=== PATIENT | female | born 1950 | race Caucasian/White ===

== ENCOUNTER 2020-03-22 13:48 | Outpatient (CLI) | payer MEDICARE, SELFPAY ==
--- NOTE | 2020-03-22 13:57 | XR_ITS ---
WS: [id number] SCREENING DEXA SCAN [employer] CLINICAL INFORMATION: POST MENOPAUSAL COMPARISON: None. FINDINGS: The L1-L4 bone mineral density measures 1.174 g/cm2. This corresponds to a T score score of 0.0 and Z score of 0.4. Left femoral neck bone mineral density measures 0.946 g/cm2. This corresponds to a T score of -0.5 an d Z score of 0.1. Right femoral neck bone mineral density measures 0.920 g/cm2. This corresponds to a T score -0.7of an d Z score of -0.1. Mean femoral neck bone mineral density measures 0.933 g/cm2. This corresponds to a T score of -0.6 an d Z score of 0.0. XR/XR DEXA axial skeleton* [id number] IMPRESSION: Normal bone mineralization. Patient's FRAX calculated 10 year probability for major osteoporotic fracture i s 10.2 % and osteoporotic hip fracture is 1.7%.
--- NOTE | 2020-03-22 14:31 | MM_ITS ---
WS: [id number] BILATERAL SCREENING DIGITAL MAMMOGRAM WITH CAD HISTORY: SCREEN COMPARISON: 07/18/2016 and 03/19/2007 Bilateral CC and MLO views submitted. Computer aided detection analyzed. Breast composition: There are scattered areas of fibroglandular density. No suspicious masses, microc alcifications or architectural distortion. Bilateral scattered asymmetries are stable. MM/[place] [id number] IMPRESSION: BI-RADS: 2-Benign FOLLOW UP: 1 Year Follow-up
== END 2020-03-22 13:49 | disposition home or self-care (01) ==
PROVIDERS: Family Provider Family Medicine; PCP Family Medicine; Visit Provider Family Medicine
DX: Z12.31 Encounter for screening mammogram for malignant neoplasm of breast (principal); Z78.0 Asymptomatic menopausal state
CPT/HCPCS: 77067; 77080

== ENCOUNTER → 2020-12-06 17:44 | Outpatient (BNVA) | payer MEDICARE, SELFPAY | PROVIDERS: Family Provider Family Medicine; PCP Family Medicine; Visit Provider Nurse Practitioner Family | DX: Z20.822 Contact with and (suspected) exposure to COVID-19 (principal) | CPT/HCPCS: 87635 ==

== ENCOUNTER 2020-12-10 08:56 | Outpatient (CLI) | payer MEDICARE, SELFPAY ==
[2020-12-10 09:16] VITALS: BP 177/82; PULSE 73; RESP 16; TEMP 36.2; O2SAT 97; BMI 36.0
[2020-12-10 10:34] VITALS: BP 188/94; PULSE 66; RESP 18; TEMP 37.5; O2SAT 95
[2020-12-10 10:54] VITALS: BP 161/85; PULSE 67; RESP 16; TEMP 37.7; O2SAT 95
--- NOTE | 2020-12-10 11:52 | A.OFFVIS_ITS ---
Patient Information Symptom onset date: 12/05/[address] [facility] COVID test results: Nasal/Oral Coronavirus 2019 PCR Detected H 12/06/20 17:44 12/06/20 outside results available, scanned Criteria/Plan Inclusion/Exclusion Criteria weight >/= 40kg, + direct test </= 10 days ago and symptom onset </= 10 days ago age >/= 65 not requiring hospitalization, not requiring oxygen (if not chronically on oxygen) and no increase oxygen requirement (if chronically on oxygen) Patient education patient/caregiver received/reviewed fact sheet, Emergency Use Authorization/unapproved drug status discussed with patient/caregiver, alternatives to this treatment discussed with patient/caregiver, risks and benefits of medication reviewed with patient/caregiver, patient/caregiver given opportunity for questions, which were answered and patient/caregiver consents to receiving Monoclonal Antibody Treatment Plan for treatment Meets criteria for Monoclonal Antibody infusion Other information sat 95%
[2020-12-10 12:25] VITALS: BP 167/80; PULSE 65; RESP 16; TEMP 37.4; O2SAT 97
[2020-12-10 12:28] VITALS: BP 167/80; PULSE 65; RESP 16; TEMP 37.4; O2SAT 97
== END 2020-12-10 08:57 | disposition home or self-care (01) ==
LOC: OPS 08:57
PROVIDERS: PCP Family Medicine; Referring Provider Nurse Practitioner Family; Visit Provider Family Medicine
DX: U07.1 COVID-19 (principal)
CPT/HCPCS: 96365

== ENCOUNTER 2021-04-13 11:10 | Emergency (ER) | payer MEDICARE, SELFPAY ==
[2021-04-13 11:22] VITALS: BP 175/85; PULSE 58; RESP 18; TEMP 36.9; O2SAT 98; BMI 35.5
--- NOTE | 2021-04-13 11:36 | ED_ITS ---
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 She is awake and alert at this time MD Complaint: head injury and head pain Onset (ago): minute(s) Mechanism of Injury: other (Struck head while standing up) Place: home Loss of Consciousness: no Location of injury: other (Left side crown of the head) Severity: mild Quality: dull and throbbing Radiation: none Other Injuries: none Associated symptoms: Deny amnesia, confusion, nausea, neck pain, numbness, syncope, tingling, vertigo, visual changes, vomiting, weakness or other Review of Systems Const: Denies: fever(s), chills, body aches, change in appetite, fatigue or malaise ENMT: Denies: throat pain, ear or mastoid pain, nasal discharge or nasal congestion Card: Denies: syncope Resp: Denies: dyspnea, productive cough or non-productive cough GI: Denies: nausea or vomiting : Denies: flank pain, difficulty voiding, dysuria, urinary frequency or urinary urgency Musc: Denies: neck pain Skin/Breast: Denies: rash or pruritus Neuro: Denies: vertigo or confusion PFS ED PFSH: Social History Smoking and tobacco status: former smoker Alcohol intake: never Physical Exam Const: COMMON NORMALS: no acute distress GENERAL APPEARANCE: cooperative and comfortable ORIENTATION/CONSCIOUSNESS: Yes awake, Yes oriented to person, Yes oriented to place and Yes oriented to time HENMT: COMMON NORMALS: normocephalic, atraumatic, hearing grossly normal bilaterally and external ears normal HEAD & SCALP: normocephalic and atraumatic EXTERNAL EAR: Yes external ears normal Eye: COMMON NORMALS: Equal, round and reactive pupils present, EOMs intact bilaterally, conjunctivae normal and no scleral icterus CONJUNCTIVA: Yes conjunctivae normal PUPIL: Yes Equal, round and reactive pupils present Neck/C-Spine: COMMON NORMALS: full ROM, no lymphadenopathy, supple and no JVD Lymph: LYMPHATIC: no lymphadenopathy noted and no lymphedema noted Resp: COMMON NORMALS: normal respiratory effort, No retractions, No use of accessory muscles and clear to auscultation bilaterally AUSCULTATION: clear to auscultation bilaterally Cardio: COMMON NORMALS: no JVD, regular rate, regular rhythm and No murmurs present (Cardio) RATE: regular rate RHYTHM: regular rhythm GI: COMMON NORMALS: Soft to palpation and No hepatosplenomegaly present AUSCULTATION: Yes normoactive bowel sounds PALPATION: Yes Soft to palpation, No Tenderness to palpation present (GI), No Guarding due to palpation present (GI) and Yes No hepatosplenomegaly present Extremity: COMMON NORMALS: normal to inspection, capillary refill normal, no clubbing, cyanosis or edema, no calf tenderness and no pedal edema Neuro: SENSORIUM/ORIENTATION: Yes oriented to person, Yes oriented to place and Yes oriented to time Skin: COMMON NORMALS: no rashes or lesions noted GENERAL SKIN EXAM: no rashes or lesions noted Course Vital Signs: Vital signs: Vital Signs Temperature 98.4 F 04/13/21 12:00 Pulse Rate 58 L 04/13/21 11:22 Respiratory Rate 18 04/13/21 12:00 Blood Pressure 175/85 04/13/21 11:22 Pulse Oximetry 98 04/13/21 12:00 MDM - Head Injury MDM Narrative: Medical decision making narrative: Neurologically intact on exam minor head injury I do not think there is anything significant there is no swelling no bruising no laceration at the site of impact would just observe for now can follow-up as needed Discharge Plan Discharge Patient Disposition: Home Clinical Impression: Closed head injury Condition: Stable Prescriptions: No Action lisinopril 10 mg tablet 15 mg PO DAILY RF: 0 pantoprazole 20 mg tablet,delayed release (DR/EC) 20 mg PO DAILY RF: 0 Discharge Orders: Discharge ED (Routine); Ordered 04/13/21 Ordered By: Jhon Santamaria Referrals: Raúl Guy MD [Primary Care Provider] - Discharge Diet: Usual diet Discharge Activity: Increase activity as tolerated Patient Instructions: Opioid Safety Coding Level of Care Code ED Marketing Technology Specialist for Chg Mandy
[2021-04-13 12:00] VITALS: RESP 18; TEMP 36.9; O2SAT 98
== END 2021-04-13 12:20 | disposition home or self-care (01) ==
PROVIDERS: Emergency Provider Family Medicine; PCP Family Medicine
DX: S09.8XXA Other specified injuries of head, initial encounter (principal); Z87.891 Personal history of nicotine dependence
CPT/HCPCS: 99281

== ENCOUNTER 2021-04-25 09:29 | Outpatient (CLI) | payer MEDICARE, SELFPAY ==
[2021-04-25 10:31] LABS: Thyroid Stimulating Hormone 0.87 uIU/mL (0.27-4.20)
[2021-04-25 11:30] LABS: Free T4 Free Thyroxine 1.17 ng/dL (0.82-1.77)
== END 2021-04-25 09:30 | disposition home or self-care (01) ==
PROVIDERS: PCP Family Medicine; Visit Provider Dermatology
DX: L65.9 Nonscarring hair loss, unspecified (principal)
CPT/HCPCS: 36415; 84439; 84443

== ENCOUNTER 2021-07-05 11:32 | Outpatient (CLI) | payer MEDICARE, SELFPAY ==
--- NOTE | 2021-07-05 11:41 | CT_ITS ---
WS: [id number] CT ABDOMEN PELVIS TECHNIQUE: Noncontrast CT of the abdomen and pelvis with coronal and sagittal reformatted images. CLINICAL INFORMATION: ACUTE COLLITIS COMPARISON: CT September 2013 DLP: 1732.[address] scans at [facility] use at least one of these dose optimization techniques: automat ed exposure control; mA and/or kV adjustment per patient size (includes targeted exams where dose is matched to clinical indication); or iterative reconstruction. FINDINGS: Prior postoperative changes cholecystectomy and hysterectomy. Noncontrast liver is normal. Hepatomega ly with enlargement of the right hepatic lobe. Normal spleen. Normal GE junction. Lung bases are well aerated. Normal noncontrast pancreas. Tiny left adrenal adenoma. Normal caliber abdominal aorta. Mild perinephric edema about the right kidney with prominent extrarenal pelvis slightly progressed si nce 2012. No obstructing renal or ureteral calculi. Recommend correlation for urinary tract infractio n and right pyelonephritis. Enhancement cannot be evaluated without contrast. Sigmoid diverticulosis. No evidence of acute diverticulitis. Mild pancolonic constipation. No evidenc e of acute colitis. No evidence of small or large bowel obstruction. Disc space narrowing throughout the lumbar spine. Tiny fat-containing umbilical hernia. CT/CT abdomen pelvis wo con [id number] IMPRESSION: 1. Mild prominence of the right extra renal pelvis with right perinephric booker a. Recommend correlation for right pyelonephritis. Enhancement cannot be evalua guille without contrast. 2. Normal left kidney. No obstructing renal or ureteral calculi. 3. Mild hepatomegaly with enlarged right hepatic lobe. 4. Normal caliber abdominal aorta. 5. Sigmoid diverticulosis. No evidence of acute diverticulitis. Mild colonic c onstipation. No evidence of acute colitis. 6. No other significant findings.
[2021-07-05] MEDS: barium sulfate 450 mL Oral Susp PO (13:17)
== END 2021-07-05 11:33 | disposition home or self-care (01) ==
LOC: RAD 11:34
PROVIDERS: PCP Family Medicine; Visit Provider Physician Assistant
DX: K52.9 Noninfective gastroenteritis and colitis, unspecified (principal); K57.30 Diverticulosis of large intestine without perforation or abscess without bleeding; R16.0 Hepatomegaly, not elsewhere classified
CPT/HCPCS: 74176

== ENCOUNTER 2022-04-12 15:18 | Outpatient (CLI) | payer MEDICARE, SELFPAY ==
--- NOTE | 2022-04-12 15:24 | XR_ITS ---
WS: [id number] SCREENING DEXA SCAN [employer] CLINICAL INFORMATION: POSTMENOPAUSAL COMPARISON: March 22, 2020 FINDINGS: The L1-L4 bone mineral density measures 1.260 g/cm2. This corresponds to a T score score of 0.7 and Z score of 1.2. Left femoral neck bone mineral density measures 0.921 g/cm2. This corresponds to a T score of -0.7 an d Z score of 0.0. Right femoral neck bone mineral density measures 0.888 g/cm2. This corresponds to a T score -1.0of an d Z score of -0.2. Mean femoral neck bone mineral density measures 0.905 g/cm2. This corresponds to a T score of -0.8 an d Z score of -0.1. XR/XR DEXA axial skeleton* [id number] IMPRESSION: Normal bone mineralization lumbar spine. Osteopenia RIGHT femoral neck in the lower end of the range. Normal bone minera lization LEFT femoral neck. Patient's FRAX calculated 10 year probability for major osteoporotic fracture i s 9.7 % and osteoporotic hip fracture is 1.5%.
== END 2022-04-12 15:19 | disposition home or self-care (01) ==
LOC: RAD 15:22
PROVIDERS: PCP Family Medicine; Visit Provider Family Medicine
DX: Z78.0 Asymptomatic menopausal state (principal)
CPT/HCPCS: 77080

== ENCOUNTER 2022-10-16 13:53 | Outpatient (CLI) | payer MEDICARE, SELFPAY ==
--- NOTE | 2022-10-16 14:01 | MM_ITS ---
WS: [id number] BILATERAL 3D TOMOSYNTHESIS DIGITAL SCREENING MAMMOGRAPHY WITH CAD CLINICAL INFORMATION: SCREENING HISTORY: Screening mammogram. No current complaints. COMPARISON: 2020 TECHNIQUE: Bilateral CC and MLO views. FINDINGS: Scattered fibroglandular densities bilaterally. Nodular subareolar breast tissue RIGHT breast is prog ressed compared to previous new focal asymmetric density measuring 6 mm along the posterior nipple li ne. Recommend RIGHT diagnostic mammography and ultrasound for further evaluation. LEFT breast is unchanged. Punctate and lucent centered calcifications RIGHT greater than LEFT breast. MM/[place] [id number] IMPRESSION: BI-RADS: 0-Incomplete: Need additional imaging evaluation FOLLOW UP: Need Additional Imaging Recommend RIGHT diagnostic mammography and ultrasound for further evaluation
== END 2022-10-16 13:54 | disposition home or self-care (01) ==
PROVIDERS: PCP Family Medicine; Visit Provider Family Medicine
DX: Z12.31 Encounter for screening mammogram for malignant neoplasm of breast (principal)
CPT/HCPCS: 77063; 77067

== ENCOUNTER 2022-11-20 10:43 | Outpatient (CLI) | payer MEDICARE, SELFPAY ==
--- NOTE | 2022-11-20 10:51 | MM_ITS ---
WS: [id number] RIGHT 3D TOMOSYNTHESIS DIGITAL MAMMOGRAPHY WITH CAD CLINICAL INFORMATION: ABNORMAL MAMMO COMPARISON: 10/16/22 TECHNIQUE: 3 views of the right breast were obtained. FINDINGS: Scattered fibroglandular densities of the right breast. Again seen is nodular subareolar breast tissu e similar to the prior examination. Stable asymmetric density measuring 6 mm along the posterior nipp le line. Ultrasound described below ULTRASOUND BREAST RIGHT TECHNIQUE: Ultrasound right breast focused area of concern. CLINICAL INFORMATION: ABNORMAL MAMMO FINDINGS: Ultrasound RIGHT breast about the areola. Ductal ectasia about the areola. At the 9:00 position, 2 cm from the nipple, there is a hypoechoic slightly irregular lesion measuring 5.6 x 8.6 x 5.7 mm taller than wide. This is indeterminant and recommend further evaluation with ultrasound-guided biopsy. MM/[place] [id number] IMPRESSION: BI-RADS: 4-Suspicious Finding-Biopsy Should Be Considered FOLLOW UP: US Guided Biopsy Recommended Recommend ultrasound-guided biopsy RIGHT breast lesion
== END 2022-11-20 10:44 | disposition home or self-care (01) ==
PROVIDERS: PCP Family Medicine; Visit Provider Physician Assistant
DX: R92.8 Other abnormal and inconclusive findings on diagnostic imaging of breast (principal)
CPT/HCPCS: 76642; 77061; G0279

== ENCOUNTER 2023-01-01 07:50 | Outpatient (CLI) | payer MEDICARE, SELFPAY ==
--- NOTE | 2023-01-01 | US_ITS ---
WS: [id number] ULTRASOUND-GUIDED RIGHT BREAST BIOPSY HISTORY: BREAST LESION COMPARISON: 11/20/2022 Procedure, risks and complications are explained to the patient. Medications are reviewed. Consent is obtained. The mass in the RIGHT breast is localized with ultrasound. Abnormality localizes to 9:00, 2 cm from t he nipple. Skin is cleansed with ChloraPrep and anesthetized with 1% buffered lidocaine. Small dermat ome is made. Under sterile conditions mass is biopsied with a 14-gauge Achieve needle. Multiple core biopsies are performed. Material placed in formalin and sent to pathology for review. No complication s encountered. Breast tissue marker ([employer] ultrasound enhanced ribbon): Single. Patient left the radiology suite with no complications. Patient is instructed to return to [facility] or [facility] with any concerns. US/[place] [id number] IMPRESSION: 1. Uncomplicated core needle biopsy hypoechoic area anterior RIGHT breast at 9 :00. PATHOLOGY: Fibrocystic with a dilated ducts. No atypia or hyperplasia. No malig jono. RECOMMENDATION: 6 month follow-up. BI-RADS 3. Recommend diagnostic RIGHT mammogram and possible ultrasound follow-up in 6 mon ths.
== END 2023-01-01 07:51 | disposition home or self-care (01) ==
LOC: RAD 07:51
PROVIDERS: PCP Family Medicine; Visit Provider Family Medicine
DX: N63.15 Unspecified lump in the right breast, overlapping quadrants (principal)
CPT/HCPCS: 19083; 88305

== ENCOUNTER 2023-08-20 08:52 | Outpatient (CLI) | payer MEDICARE, SELFPAY ==
--- NOTE | 2023-08-20 09:00 | MM_ITS ---
WS: [id number] DIAGNOSTIC RIGHT DIGITAL TOMOSYNTHESIS MAMMOGRAPHY WITH CAD. RIGHT breast ultrasound, limited HISTORY: 6MFU POST BX COMPARISON: 11/20/2022, 01/01/2023, 10/16/2022 Technique: CC, MLO and ML views. RIGHT CC spot. Breast composition: There are scattered areas of fibroglandular density. Biopsy clip 9:00 RIGHT breas t. Similar appearance of the soft tissue and fibroglandular pattern since the prior study. No distort ion. RIGHT breast ultrasound, limited. Hypoechoic nodule at 9:00, 2 cm the nipple measures 4 x 8 x 10 mm. Very similar in size to the prior examination. There is a biopsy clip present. No enlargement. No mammographic changes. Prior biopsy wa s negative. IMPRESSION: MM/[place] [id number] BI-RADS: 2-Benign FOLLOW UP: See Report Return to annual mammographic screening. Screening mammogram November 2022.
== END 2023-08-20 08:53 | disposition home or self-care (01) ==
PROVIDERS: PCP Family Medicine; Visit Provider Family Medicine
DX: R92.8 Other abnormal and inconclusive findings on diagnostic imaging of breast (principal)
CPT/HCPCS: 76642; 77061; G0279

== ENCOUNTER → 2023-12-17 15:06 | Outpatient (BNVA) | payer MEDICARE, SELFPAY | PROVIDERS: PCP Family Medicine; Visit Provider Dermatology | DX: L82.1 Other seborrheic keratosis (principal); L21.8 Other seborrheic dermatitis; Q82.5 Congenital non-neoplastic nevus; L60.8 Other nail disorders; D22.39 Melanocytic nevi of other parts of face | CPT/HCPCS: 99214 ==

== ENCOUNTER 2024-01-12 11:17 | Emergency (ER) | payer MEDICARE, SELFPAY ==
[2024-01-12] VITALS (10 sets, daily range): BP systolic 144–185; BP diastolic 66–98; PULSE 58–103; RESP 17; TEMP 36.6; O2SAT 95–100; BMI 37.8
--- NOTE | 2024-01-12 12:53 | XRR_ITS ---
PROCEDURE INFORMATION: Exam: XR Chest Exam date and time: 01/12/2024 1:06 PM Age: 73 years old Clinical indication: Pain; Chest pressure; Additional info: Chest pain TECHNIQUE: Imaging protocol: Radiologic exam of the chest. Views: 1 view. COMPARISON: CR XR chest 2V* [id number] 11/25/2018 4:26 PM FINDINGS: Lungs: Unremarkable. No consolidation. Pleural spaces: Unremarkable. No pleural effusion. No pneumothorax. Heart/Mediastinum: Unremarkable. No cardiomegaly. Bones/joints: Mild degenerative disease of the left acromioclavicular joint. XR/XR chest 1V portable [id number] IMPRESSION: No acute cardiopulmonary process.
--- NOTE | 2024-01-12 12:54 | ED_ITS ---
HPI - Chest Pain 2 General: Chief Complaint: Chest Pain Stated Complaint: aicha bazzi, chest pain Time Seen by Provider: 01/12/24 12:51 Source: patient Mode of arrival: ambulatory History of Present Illness: 73-year-old female presents emergency ro om complaining of chest pain in the left side of her chest that shoots down her breast and into her arm little bit it is worse when she takes a deep breath. She denies any fever sweats chills or productive cough. She also knows her blood pressure is up a little bit after she arrived here. She has no known history of coronary artery disease. MD complaint: chest pain Onset (ago): day(s) Associated symptoms: Deny abdominal pain, dyspnea or fever(s) Review of Systems 2 Const: Denies: fever(s) or chills Card: Denies: chest pain Resp: Denies: dyspnea GI: Denies: abdominal pain : Denies: dysuria, urinary frequency or urinary urgency Musc: Denies: neck pain or back pain Skin/Breast: Denies: rash PFSH ED 2 PFSH: Medical History GERD (gastroesophageal reflux disease) HTN (hypertension) Surgical History History of cholecystectomy H/O: hysterectomy Social History Smoking and tobacco/nicotine status: former use of tobacco/nicotine Alcohol intake: never Substance/Drug Use: never Physical Exam 2 Const: COMMON NORMALS: no acute distress GENERAL APPEARANCE: cooperative and comfortable ORIENTATION/CONSCIOUSNESS: Yes awake, Yes oriented to person, Yes oriented to place and Yes oriented to time HENMT: COMMON NORMALS: normocephalic, atraumatic and hearing grossly normal bilaterally HEAD & SCALP: normocephalic and atraumatic Resp: COMMON NORMALS: normal respiratory effort, No retractions, No use of accessory muscles and clear to auscultation bilaterally AUSCULTATION: clear to auscultation bilaterally Cardio: COMMON NORMALS: regular rate, regular rhythm and No murmurs present (Cardio) RATE: regular rate RHYTHM: regular rhythm GI: COMMON NORMALS: Soft to palpation and No hepatosplenomegaly present A USCULTATION: Yes normoactive bowel sounds PALPATION: Yes Soft to palpation, No Tenderness to palpation present (GI), No Guarding due to palpation present (GI) and Yes No hepatosplenomegaly present Extremity: COMMON NORMALS: normal to inspection, capillary refill normal, no clubbing, cyanosis or edema, no calf tenderness and no pedal edema Neuro: SENSORIUM/ORIENTATION: Yes oriented to person, Yes oriented to place and Yes oriented to time Skin: COMMON NORMALS: no rashes or lesions noted GENERAL SKIN EXAM: no rashes or lesions noted Course 2 Vital Signs: Vital signs: Vital Signs Temperature 97.9 F 01/12/24 11:26 Pulse Rate 66 01/12/24 17:48 Respiratory Rate 17 01/12/24 11:26 Blood Pressure 166/86 01/12/24 17:01 Pulse Oximetry 97 01/12/24 17:48 Oxygen Delivery Me thod Room Air 01/12/24 17:01 MDM - Chest Pain Medical Decision Making Labs and imaging reviewed is on the chart EKG does not show any acute ST changes. Discharge home. Will set up outpatient Lexiscan sestamibi stress test return if has further chest discomfort. Recommend baby aspirin daily Medical Records I reviewed the patient's medical records. Lab Data I reviewed the patient's lab results. 01/12/24 13:39 01/12/24 13:39 Radiology Impressions Chest X-Ray 01/12/24 12:53 IMPRESSION: No acute cardiopulmonary process. Laboratory Results WBC 4.93 10^3/uL (3.29-11.43) 01/12/24 13:39 RBC 5.20 10^6/uL (3.85-5.65) 01/12/24 13:39 Hgb 14.70 g/dL (11.27-16.99) 01/12/24 13:39 Hct 48.5 % (36-47) H 01/12/24 13:39 MCV 93.3 fl (85-98) 01/12/24 13:39 MCH 28.3 pg (27-33) 01/12/24 13:39 MCHC 30.3 g/dL (30-55) 01/12/24 13:39 RDW 13.2 % (12.1-15.1) 01/12/24 13:39 Plt Count 121 10^3/cmm (157-399) L 01/12/24 13:39 MPV 10.4 fL (7.4-10.4) 01/12/24 13:39 Neut % (Auto) 43.4 % 01/12/24 13:39 Lymph % (Auto) 46.5 % 01/12/24 13:39 Wake % (Auto) 7.5 % 01/12/24 13:39 Eos % (Auto) 1.4 % 01/12/24 13:39 Baso % (Auto) 1.0 % 01/12/24 13:39 Neut # (Auto) 2.14 10^3/uL (1.8-7.7) 01/12/24 13:39 Lymph # (Auto) 2.3 10^3/uL (0.8-4.8) 01/12/24 13:39 Wake # (Auto) 0.4 10^3/uL (0.2-0.9) 01/12/24 13:39 Eos # (Auto) 0.1 10^3/uL (0.0-0.8) 01/12/24 13:39 Baso # (Auto) 0.1 10^3/uL (0.0-0.1) 01/12/24 13:39 Nucleated RBC % (auto) 0 % 01/12/24 13:39 Nucleated RBCs # 0.0 /100WBC 01/12/24 13:39 Sodium 138 mmol/L (136-145) 01/12/24 13:39 Potassium 4.6 mmol/L (3.5-5.1) 01/12/24 13:39 Chloride 104 mmol/L (98-107) 01/12/24 13:39 Carbon Dioxide 19 mmol/L (22-29) L 01/12/24 13:39 Anion Gap 19.6 (5-19) H 01/12/24 13:39 BUN 11 mg/dL (8-23) 01/12/24 13:39 Creatinine 0.7 mg/dL (0.5-0.9) 01/12/24 13:39 GFR Calculation Not Reportable 01/12/24 13:39 Glucose 95 mg/dL (65-115) 01/12/24 13:39 Calculated Osmolality 285 mOsm/kg (285-295) 01/12/24 13:39 Calcium 9.1 mg/dL (8.5-10.5) 01/12/24 13:39 Total Bilirubin 0.5 mg/dL (0.15-1.2) 01/12/24 13:39 AST 53 U/L (0-32) H 01/12/24 13:39 ALT 52 U/L (0-33) H 01/12/24 13:39 Alkaline Phosphatase 94 U/L (35-105) 01/12/24 13:39 Troponin T Baseline < 6 ng/L (0-10) 01/12/24 13:39 Troponin T 120 Minute 6.00 ng/L (0-10) 01/12/24 16:31 Delta Troponin T 0.85649 ABS# (0-10) 01/12/24 16:31 Total Protein 7.1 g/dL (6.6-8.7) 01/12/24 13:39 Albumin 4.0 g/dL (3.5-5.2) 01/12/24 13:39 Globulin 3.1 g/dL (1.3-4.6) 01/12/24 13:39 Urine Color Straw (Yellow) 01/12/24 14:24 Urine Appearance Clear (CLEAR) 01/12/24 14:24 Urine pH 6 (5-7) 01/12/24 14:24 Ur Specific [place] 1.005 (1.005-1.030) 01/12/24 14:24 Urine Protein Neg (Negative) 01/12/24 14:24 Urine Glucose (UA) Norm (Normal) 01/12/24 14:24 Urine Ketones Negative (Negative) 01/12/24 14:24 Urine Blood Neg (Negative) 01/12/24 14:24 Urine Nitrate Negative (Negative) 01/12/24 14:24 Urine Bilirubin Neg (Negative) 01/12/24 14:24 Urine Urobilinogen Norm mg/dL (Negative) 01/12/24 14:24 Ur Leukocyte Esterase Negative (Negative) 01/12/24 14:24 All radiology interpretation(s) finalized by discharge Discharge Plan Discharge Patient Disposition: Home Clinical Impression: Atypical chest pain Condition: Stable Prescriptions: New diclofenac sodium 75 mg tablet,delayed release (DR/EC) 75 mg PO Q12H PRN (Reason: pain) Qty: 20 0RF Discontinued pantoprazole 20 mg tablet,delayed release (DR/EC) 20 mg PO QAM ibuprofen 200 mg Tablet 400 mg PO Q4H PRN (Reason: Pain) No Action multivitamin [Daily Multi-Vitamin] Tablet 1 tab PO DAILY ketoconazole 2 % shampoo See Rx Instructions .ROUTE .COMPLEX Rx Instructions: LATHER ONTO SCALP 2-3 TIMES WEEKLY. ALLOW TO SIT 5 MINUTES BEFORE RINSING. Zyrtec 10 mg Tablet 10 mg PO BEDTIME fexofenadine 180 mg Tablet 180 mg PO QAM Tylenol Ex Str Rapid Release 500 mg Tablet 1,000 mg PO Q4H PRN (Reason: Pain) lisinopril 5 mg tablet 5 mg PO BEDTIME mometasone 0.1 % solution 1 applic topical DAILY PRN (Reason: unknown) Rx Instructions: few drops to scalp daily Discharge Orders: Discharge ED (Routine); Ordered 01/12/24 Ordered By: Jhon Santamaria Referrals: Raúl Guy MD [Primary Care Provider] - Discharge Diet: Usual diet Discharge Activity: Resume usual activity Patient Instructions: Opioid Safety, Pain Management Activity Restrictions/Additional Instructions: Thank you for choosing [facility] for your healthcare needs today. Please realize this is an emergency room and that we are providing you with a medical screening exam and this may not be complete and all inclusive of all the testing and or work up that you may need to determine your ailment or severity of your illness. It is very important that you follow up as instructed or that you return to the Emergency Department should you have concerns or if your condition changes or worsens in any way. You are seen today for complaints of chest discomfort. Your cardiac enzymes laboratory studies were all normal. Also mentions some discomfort with your urination and urine testing was also negative. Would recommend you increase your pantoprazole to 40 mg daily. Since should also complained of some worsening of the discomfort with very deep breathing heavy use diclofenac as needed. Your blood pressure was also little elevated today in the emergency room you should follow-up with your primary care doctor to reevaluate that as an outpatient. Coding Level of Care Code ED Repair Table Operator for Nathaly Galvan
[2024-01-12] MEDS: aspirin 81 mg Chew Tablet 324 MG PO (13:01)
[2024-01-12 13:47] LABS: Basophils # 0.1 10^3/uL (0.0-0.1); Eosinophils # 0.1 10^3/uL (0.0-0.8); Eosinophils % 1.4 %; Hematocrit 48.5 % (36-47); Lymphocytes # 2.3 10^3/uL (0.8-4.8); Lymphocytes % 46.5 %; Mean Corpuscular HGB Conc 30.3 g/dL (30-55); Mean Corpuscular Hemoglobin 28.3 pg (27-33); Mean Corpuscular Volume 93.3 fl (85-98); Mean Platelet Volume 10.4 fL (7.4-10.4); Monocytes # 0.4 10^3/uL (0.2-0.9); Monocytes % 7.5 %; Neutrophils # 2.14 10^3/uL (1.8-7.7); Neutrophils % 43.4 %; Nucleated Red Blood Cells % 0 %; Platelet Count 121 10^3/cmm (157-399); Red Cell Distribution Width 13.2 % (12.1-15.1); White Blood Count 4.93 10^3/uL (3.29-11.43)
[2024-01-12 14:17] LABS: Troponin(5th) Baseline < 6 ng/L (0-10)
[2024-01-12 14:19] LABS: Alkaline Phosphatase 94 U/L (35-105); Blood Urea Nitrogen 11 mg/dL (8-23); Calcium 9.1 mg/dL (8.5-10.5); Carbon Dioxide 19 mmol/L (22-29); Chloride 104 mmol/L (98-107); Creatinine Clr Calc Pharmacy 77.1558; Globulin 3.1 g/dL (1.3-4.6); Glucose 95 mg/dL (65-115); Osmolality Calculated 285 mOsm/kg (285-295); Sodium 138 mmol/L (136-145); Total Bilirubin 0.5 mg/dL (0.15-1.2); Total Protein 7.1 g/dL (6.6-8.7)
[2024-01-12 14:23] LABS: Alanine Aminotransferase 52 U/L (0-33); Anion Gap 19.6 (5-19); Aspartate Amino Transferase 53 U/L (0-32); Potassium 4.6 mmol/L (3.5-5.1)
[2024-01-12 14:47] LABS: Add Urine Microscopic? NO; Charge for UA Resulting for Rev
[2024-01-12 14:53] LABS: Bilirubin Urine Neg (Negative); Blood Urine Neg (Negative); Glucose Urine UA Norm (Normal); Ketones Urine Negative (Negative); Leukocyte Esterase Urine Negative (Negative); Nitrate Urine Negative (Negative); Protein Urine Neg (Negative); Specific Gravity, Urine 1.005 (1.005-1.030); Urine Appearance Clear (CLEAR); Urine Color Straw (Yellow); Urobilinogen Urine Norm (Negative); pH Urine 6 (5-7)
--- NOTE | 2024-01-12 14:53 | ECG_ITS ---
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 Measurements Intervals [place] Rate: 65 P: 66 SD: 162 QRS: 54 QRSD: 96 T: 54 QT: 402 QTc: 419 Interpretive Statements SINUS RHYTHM LOW QRS VOLTAGE IN PRECORDIAL LEADS [QRS DEFLECTION < 1.0 mV IN CHEST LEADS] Compared to ECG 09/04/2018 12:35:02 Myocardial infarct finding no longer present T-wave abnormality no longer present Possible ischemia no longer present Electronically Signed On 01-14-2024 9:39:41 COP by Pablo Contreras M.D. [id number]
[2024-01-12] MEDS: hyDRALAzine 20 mg/mL INJ 1 mL 10 MG IVP (14:59)
[2024-01-12] MEDS: amlodipine 5 mg Tablet PO (15:00)
[2024-01-12 16:54] LABS: Troponin 5 2HR Delta 0.00001 ABS# (0-10)
--- NOTE | 2024-01-16 08:07 | DCPLANNER ---
Sent out patient order to centralized scheduling - [facility]
== END 2024-01-12 17:50 | disposition home or self-care (01) ==
PROVIDERS: Emergency Provider Family Medicine; PCP Family Medicine
DX: R07.89 Other chest pain (principal); I10 Essential (primary) hypertension; Z87.891 Personal history of nicotine dependence
CPT/HCPCS: 36415; 71045; 80053; 81003; 84484; 85025; 93005; 96374; 99285; J0360

== ENCOUNTER 2024-06-17 15:39 | Outpatient (RCR) | payer MEDICARE, SELFPAY | END 2024-07-12 23:59 | disposition home or self-care (01) | LOC: SPT 15:39 | PROVIDERS: PCP Family Medicine; Visit Provider Family Medicine | DX: N81.10 Cystocele, unspecified (principal) | CPT/HCPCS: 97110; 97161; 97530 ==

== ENCOUNTER 2024-07-17 13:40 | Outpatient (RCR) | payer MEDICARE, SELFPAY | END 2024-08-11 23:59 | disposition home or self-care (01) | LOC: SPT 13:40 | PROVIDERS: PCP Family Medicine; Visit Provider Family Medicine | DX: N81.10 Cystocele, unspecified (principal); K59.00 Constipation, unspecified; N39.46 Mixed incontinence | CPT/HCPCS: 97110; 97530 ==

== ENCOUNTER 2024-08-19 12:48 | Outpatient (RCR) | payer MEDICARE, SELFPAY | END 2024-08-19 23:59 | disposition home or self-care (01) | LOC: SPT 12:48 | PROVIDERS: PCP Family Medicine; Visit Provider Family Medicine | DX: N81.10 Cystocele, unspecified (principal); K59.00 Constipation, unspecified; N39.46 Mixed incontinence | CPT/HCPCS: 97110 ==

== ENCOUNTER 2024-08-22 14:45 | Outpatient (CLI) | payer MEDICARE, SELFPAY ==
--- NOTE | 2024-08-22 14:49 | MM_ITS ---
WS: [id number] BILATERAL 3D TOMOSYNTHESIS DIGITAL SCREENING MAMMOGRAPHY WITH CAD CLINICAL INFORMATION: SCREENING HISTORY: Screening mammogram. No current complaints. COMPARISON: 2022 TECHNIQUE: Bilateral CC and MLO views. FINDINGS: Scattered fibroglandular densities bilaterally. No suspicious focal mass, asymmetry, calcifications, or architectural distortion. No evidence of malignancy. Secretory calcifications RIGHT breast. Biopsy marker RIGHT breast. MM/MM scr tomosynthesis [id number] IMPRESSION: DENSITY: There are scattered areas of fibroglandular density. BI-RADS: 2 - Benign. FOLLOW UP: 1 Year Follow-up Recommend return to annual screening mammography.
== END 2024-08-22 14:46 | disposition home or self-care (01) ==
LOC: RAD 14:45
PROVIDERS: PCP Family Medicine; Visit Provider Family Medicine
DX: Z12.31 Encounter for screening mammogram for malignant neoplasm of breast (principal); R92.323 Mammographic fibroglandular density, bilateral breasts; R92.1 Mammographic calcification found on diagnostic imaging of breast
CPT/HCPCS: 77063; 77067

== ENCOUNTER → 2024-12-22 12:46 | Outpatient (BNVA) | payer MEDICARE, SELFPAY | PROVIDERS: PCP Family Medicine; Visit Provider Nurse Practitioner Family | DX: L21.8 Other seborrheic dermatitis (principal); L82.1 Other seborrheic keratosis; D22.39 Melanocytic nevi of other parts of face; L64.8 Other androgenic alopecia; L85.3 Xerosis cutis; L81.3 Cafe au lait spots | CPT/HCPCS: 99214 ==

== ENCOUNTER → 2025-01-07 13:06 | Outpatient (BNVA) | payer MEDICARE, SELFPAY | PROVIDERS: PCP Family Medicine; Visit Provider Nurse Practitioner Family | DX: L85.3 Xerosis cutis (principal); L81.3 Cafe au lait spots; D48.5 Neoplasm of uncertain behavior of skin | CPT/HCPCS: 11102; 99213 ==

== ENCOUNTER 2025-02-26 20:16 | Emergency (ER) | payer MEDICARE, SELFPAY ==
[2025-02-26 20:17] VITALS: BP 154/85; PULSE 76; RESP 18; TEMP 36.3; O2SAT 98; BMI 33.3
[2025-02-26 21:27] LABS: Basophils # 0.1 10^3/uL (0.0-0.1); Basophils % 0.7 %; Eosinophils # 0.1 10^3/uL (0.0-0.8); Eosinophils % 1.2 %; Hematocrit 48.5 % (36-47); Lymphocytes # 2.9 10^3/uL (0.8-4.8); Lymphocytes % 39.9 %; Mean Corpuscular HGB Conc 32.8 g/dL (30-55); Mean Corpuscular Hemoglobin 27.8 pg (27-33); Mean Corpuscular Volume 84.8 fl (85-98); Mean Platelet Volume 8.9 fL (7.4-10.4); Monocytes # 0.4 10^3/uL (0.2-0.9); Neutrophils # 3.79 10^3/uL (1.8-7.7); Neutrophils % 51.9 %; Nucleated Red Blood Cells % 0 %; Platelet Count 249 10^3/cmm (157-399); Red Blood Count 5.72 10^6/uL (3.85-5.65); Red Cell Distribution Width 13.1 % (12.1-15.1)
[2025-02-26 21:43] LABS: Alanine Aminotransferase 27 U/L (0-33); Albumin Level 4.5 g/dL (3.5-5.2); Alkaline Phosphatase 95 U/L (35-105); Anion Gap 17.5 (5-19); Aspartate Amino Transferase 26 U/L (0-32); Blood Urea Nitrogen 11 mg/dL (8-23); Calcium 9.5 mg/dL (8.5-10.5); Carbon Dioxide 22 mmol/L (22-29); Chloride 101 mmol/L (98-107); Creatinine Clr Calc Pharmacy 68.6516; Globulin 3.2 g/dL (1.3-4.6); Glucose 98 mg/dL (65-115); Osmolality Calculated 283 mOsm/kg (285-295); Potassium 3.5 mmol/L (3.5-5.1); Sodium 137 mmol/L (136-145); Total Bilirubin 0.5 mg/dL (0.15-1.2); Total Protein 7.7 g/dL (6.6-8.7)
[2025-02-26 21:45] LABS: INR 0.89 (0.8-1.2); Partial Thromboplastin Time 26.9 SECONDS (23.9-36.7)
[2025-02-26 22:47] VITALS: BP 184/72; BP 187/77; BP 214/84; PULSE 61; PULSE 66; PULSE 81
[2025-02-26 22:51] VITALS: BP 184/72; PULSE 65; RESP 16; O2SAT 96
--- NOTE | 2025-02-26 22:55 | CTR_ITS ---
PROCEDURE INFORMATION: Exam: CTA Abdomen and Pelvis With Contrast Exam date and time: 02/26/2025 11:48 PM Age: 74 years old Clinical indication: Other: Rapid gi bleed post colonoscopy; Prior surgery; Surgery date: Post-operative (0-2 days) TECHNIQUE: Imaging protocol: C. Computed tomographic angiography of the abdomen and pelvis with contrast. Exam focused on the arteries. 3D rendering (Not supervised by radiologist): MIP and/or 3D reconstructed images were created by the technologist. Radiation optimization: All CT scans at this facility use at least one of these dose optimization techniques: automated exposure control; mA and/or kV adjustment per patient size (includes targeted exams where dose is matched to clinical indication); or iterative reconstruction. Contrast material: OMNI 350; Contrast volume: 100 ml; Contrast route: INTRAVENOUS (IV); COMPARISON: CT abdomen pelvis wo con [id number] 07/05/2021 1:11 PM RADIATION DOSE METRICS: Total DLP (mGy-cm): 2311.95 FINDINGS: VASCULATURE: Pulmonary arteries: Normal. No pulmonary emboli. Aorta: No aortic aneurysm. No aortic dissection. Celiac trunk and mesenteric arteries: No occlusion or significant stenosis. Renal arteries: No occlusion or significant stenosis. Right iliac arteries: No occlusion or significant stenosis. Left iliac arteries: No occlusion or significant stenosis. CHEST: Lungs: Left lower lobe 10 mm pulmonary nodule abutting the undersurface of the major fissure, series 4 image 19. Pleural spaces: Unremarkable. No pneumothorax. No pleural effusion. Heart: Unremarkable. No cardiomegaly. No pericardial effusion. ABDOMEN AND PELVIS: Liver: No mass. Gallbladder and biliary ducts: Unremarkable. No calcified stones. No ductal dilation. Pancreas: Unremarkable. No mass. No ductal dilation. Spleen: Unremarkable. No splenomegaly. Adrenal glands: Unremarkable. No mass. Kidneys and ureters: Unremarkable. No solid mass. No hydronephrosis. Stomach and bowel: Diverticulosis without diverticulitis. Appendix: No evidence of appendicitis. Intraperitoneal space: Unremarkable. No free air. No significant fluid collection. Urinary bladder: Unremarkable. No mass. Reproductive: Unremarkable as visualized. Lymph nodes: Unremarkable. No enlarged lymph nodes. Bones/joints: L1 vertebral body hemangioma. Soft tissues: Unremarkable. CT/CT angio abdomen pelvis [id number] IMPRESSION: 1. Negative for contrast extravasation seen to indicate a source of gastrointestinal bleeding. 2. Left lower lobe 10 mm pulmonary nodule abutting the undersurface of the major fissure, series 4 image 19. Consider non-emergent PET/CT or tissue sampling.(Reference: Stacie) 3. L1 vertebral body hemangioma. 4. Diverticulosis without diverticulitis. REFERENCES: Stacie Perez, et al. Guidelines for Management of Incidental Pulmonary Nodules Detected on CT Images: From the Fleischner Society 2017. Radiology. 2017;284(1):228-243.
[2025-02-26] MEDS: sodium chloride 0.9% 1,000 ML 999 ML IV (23:29)
[2025-02-26] MEDS: methylPREDNISolone sod succ 125 mg/2 mL INJ 60 MG IVP (23:32)
[2025-02-26] MEDS: famotidine 20 mg/2 mL INJ 40 MG IVP (23:32)
[2025-02-26] MEDS: diphenhydrAMINE 50 mg/mL SDV 1mL IVP (23:32)
[2025-02-26] MEDS: tranexamic acid 1,000 MG/100 ML PREMIX 600 MG IV (23:33)
[2025-02-27] MEDS: iohexol 350 mg/mL 500 mL Btl (per mL) IV (00:04)
[2025-02-27 00:25] VITALS: BP 182/63; PULSE 67; RESP 16; O2SAT 95
--- NOTE | 2025-02-27 00:45 | W.ED.GIBLEED ---
HPI - GI Bleed General: Chief complaint: GI Bleed Stated complaint: Colonosocopy today heavy bleeding Time Seen by Provider: 02/26/25 22:40 History of Present Illness: The patient, who has a history of IBS, presents with significant bleeding following a colonoscopy. The patient reports that initially, there were blood clots, but now there is continuous red blood, making it difficult to discern clots. The bleeding worsens with the intake of water, and the patient experiences cramping similar to IBS. The patient denies vomiting but feels nauseated intermittently. The patient has fallen once and almost fell a second time. Initial blood tests showed a hemoglobin level of 14, which is within the normal range. The patient is allergic to contrast dye, experiencing a hot sensation when exposed. The patient is also allergic to codeine and prednisone, with prednisone causing a significant increase in blood pressure. The patient has not taken any medications except for stomach pills as advised. The bleeding started around 2-3 PM after the colonoscopy was completed at 1 PM. Related Data Home Medications ?Medication ?Instructions ?Recorded ?Confirmed multivitamin (Daily Multi-Vitamin 1 tab PO DAILY 04/21/21 01/12/24 tablet) acetaminophen 500 mg tablet 1,000 mg PO Q4H PRN Pain 01/12/24 01/12/24 cetirizine 10 mg tablet (Zyrtec) 10 mg PO BEDTIME 01/12/24 01/12/24 fexofenadine 180 mg tablet 180 mg PO QAM 01/12/24 01/12/24 ketoconazole 2 % shampoo See Rx Instructions .Route .COMPLEX 01/12/24 01/12/24 lisinopril 5 mg tablet 5 mg PO BEDTIME 01/12/24 01/12/24 mometasone 0.1 % topical solution 1 applic topical DAILY PRN unknown 01/12/24 01/12/24 Previous Rx's ?Medication ?Instructions ?Recorded diclofenac sodium 75 mg 75 mg PO Q12H PRN pain #20 tabs 01/12/24 tablet,delayed release Allergies Allergy/AdvReac Type Severity Reaction Status Date / Time Iodinated Contrast Media Allergy Severe difficulty Verified 01/12/24 16:21 breathing, rash codeine Allergy unk Verified 01/12/24 16:21 steroids Allergy Intermediate increased Uncoded 11/28/22 15:16 blood pressure and heart rate PFSH ED PFSH: Medical History GERD (gastroesophageal reflux disease) HTN (hypertension) Surgical History History of cholecystectomy H/O: hysterectomy Social History Smoking and tobacco/nicotine status: former use of tobacco/nicotine Alcohol intake: never Substance/Drug Use: never Physical Exam Const: COMMON NORMALS: no acute distress, patient oriented x3 and alert HENMT: COMMON NORMALS: normocephalic and atraumatic HEAD & SCALP: normocephalic and atraumatic Eye: COMMON NORMALS: Equal, round and reactive pupils present, EOMs intact bilaterally and no scleral icterus PUPIL: Yes Equal, round and reactive pupils present Resp: COMMON NORMALS: normal respiratory effort and No retractions Cardio: COMMON NORMALS: regular rate, regular rhythm and No murmurs present (Cardio) RATE: regular rate RHYTHM: regular rhythm GI: COMMON NORMALS: Normal to inspection, nondistended, normoactive bowel sounds present, Soft to palpation and non-tender PALPATION: Yes Soft to palpation : OTHER: Jordy red blood per rectum Neuro: COMMON NORMALS: patient oriented x3 SENSORIUM/ORIENTATION: Yes alert Skin: COMMON NORMALS: no rashes or lesions noted GENERAL SKIN EXAM: no rashes or lesions noted Course Vital Signs: Vital signs: Vital Signs Temperature 97.4 F L 02/26/25 20:17 Pulse Rate 71 02/27/25 02:26 Respiratory Rate 16 02/27/25 00:25 Blood Pressure 217/97 02/27/25 02:26 Pulse Oximetry 94 02/27/25 02:26 Oxygen Delivery Me thod Room Air 02/27/25 00:25 MDM - GI Bleed Medical Decision Making In summary, patient is a generally well-appearing 74-year-old female seen for multiple bouts of jordy blood per rectum following colonoscopy earlier today [facility] with Dr. Helm. Hemoglobin is stable and was rechecked several hours later and remained stable. CTA of the abdomen was performed and did not show active blush. With hemoglobin above 15, I spoke with Dr. Helm who agrees to see the patient tomorrow morning and take her back to the [facility] for repeat colonoscopy if needed. Hopefully by then bleeding is stopped. She was given TXA here in the emergency department. Vital signs remained stable. She will be discharged in stable and improved condition. Lab Data 02/27/25 00:40 02/26/25 21:15 Radiology Impressions Abdomen/Pelvis CTA 02/26/25 22:55 IMPRESSION: 1. Negative for contrast extravasation seen to indicate a source of gastrointestinal bleeding. 2. Left lower lobe 10 mm pulmonary nodule abutting the undersurface of the major fissure, series 4 image 19. Consider non-emergent PET/CT or tissue sampling.(Reference: Stacie) 3. L1 vertebral body hemangioma. 4. Diverticulosis without diverticulitis. REFERENCES: Stacie Perez, et al. Guidelines for Management of Incidental Pulmonary Nodules Detected on CT Images: From the Fleischner Society 2017. Radiology. 2017;284(1):228-243. Laboratory Results WBC 7.30 10^3/uL (3.29-11.43) 02/26/25 21:15 RBC 5.72 10^6/uL (3.85-5.65) H 02/26/25 21:15 Hgb 15.20 g/dL (11.27-16.99) 02/27/25 00:40 Hct 47.5 % (36-47) H 02/27/25 00:40 MCV 84.8 fl (85-98) L 02/26/25 21:15 MCH 27.8 pg (27-33) 02/26/25 21:15 MCHC 32.8 g/dL (30-55) 02/26/25 21:15 RDW 13.1 % (12.1-15.1) 02/26/25 21:15 Plt Count 249 10^3/cmm (157-399) 02/26/25 21:15 MPV 8.9 fL (7.4-10.4) 02/26/25 21:15 Neut % (Auto) 51.9 % 02/26/25 21:15 Lymph % (Auto) 39.9 % 02/26/25 21:15 [place] % (Auto) 6.0 % 02/26/25 21:15 Eos % (Auto) 1.2 % 02/26/25 21:15 Baso % (Auto) 0.7 % 02/26/25 21:15 Neut # (Auto) 3.79 10^3/uL (1.8-7.7) 02/26/25 21:15 Lymph # (Auto) 2.9 10^3/uL (0.8-4.8) 02/26/25 21:15 [place] # (Auto) 0.4 10^3/uL (0.2-0.9) 02/26/25 21:15 Eos # (Auto) 0.1 10^3/uL (0.0-0.8) 02/26/25 21:15 Baso # (Auto) 0.1 10^3/uL (0.0-0.1) 02/26/25 21:15 Nucleated RBC % (auto) 0 % 02/26/25 21:15 Nucleated RBCs # 0.0 /100WBC 02/26/25 21:15 PT 12.60 SECONDS (12.1-14.9) 02/26/25 21:15 INR 0.89 (0.8-1.2) 02/26/25 21:15 APTT 26.9 SECONDS (23.9-36.7) 02/26/25 21:15 Sodium 137 mmol/L (136-145) 02/26/25 21:15 Potassium 3.5 mmol/L (3.5-5.1) 02/26/25 21:15 Chloride 101 mmol/L (98-107) 02/26/25 21:15 Carbon Dioxide 22 mmol/L (22-29) 02/26/25 21:15 Anion Gap 17.5 (5-19) 02/26/25 21:15 BUN 11 mg/dL (8-23) 02/26/25 21:15 Creatinine 0.6 mg/dL (0.5-0.9) 02/26/25 21:15 GFR Calculation Not Reportable 02/26/25 21:15 Glucose 98 mg/dL (65-115) 02/26/25 21:15 Calculated Osmolality 283 mOsm/kg (285-295) L 02/26/25 21:15 Calcium 9.5 mg/dL (8.5-10.5) 02/26/25 21:15 Total Bilirubin 0.5 mg/dL (0.15-1.2) 02/26/25 21:15 AST 26 U/L (0-32) 02/26/25 21:15 ALT 27 U/L (0-33) 02/26/25 21:15 Alkaline Phosphatase 95 U/L (35-105) 02/26/25 21:15 Total Protein 7.7 g/dL (6.6-8.7) 02/26/25 21:15 Albumin 4.5 g/dL (3.5-5.2) 02/26/25 21:15 Globulin 3.2 g/dL (1.3-4.6) 02/26/25 21:15 Blood Type O Negative 02/26/25 23:20 Rho(D) Type Rh negative 02/26/25 23:20 Antibody Screen Negative 02/26/25 23:20 All radiology interpretation(s) finalized by discharge Discharge Plan Discharge Patient Disposition: Home Clinical Impression: Acute lower gastrointestinal bleeding Condition: Stable Prescriptions: No Action multivitamin [Daily Multi-Vitamin] Tablet 1 tab PO DAILY ketoconazole 2 % shampoo See Rx Instructions .ROUTE .COMPLEX Rx Instructions: LATHER ONTO SCALP 2-3 TIMES WEEKLY. ALLOW TO SIT 5 MINUTES BEFORE RINSING. Zyrtec 10 mg Tablet 10 mg PO BEDTIME fexofenadine 180 mg Tablet 180 mg PO QAM Tylenol Ex Str Rapid Release 500 mg Tablet 1,000 mg PO Q4H PRN (Reason: Pain) lisinopril 5 mg tablet 5 mg PO BEDTIME mometasone 0.1 % solution 1 applic topical DAILY PRN (Reason: unknown) Rx Instructions: few drops to scalp daily diclofenac sodium 75 mg tablet,delayed release (DR/EC) 75 mg PO Q12H PRN (Reason: pain) Qty: 20 0RF Discharge Orders: Discharge ED (Routine); Ordered 02/27/25 Ordered By: Tristan Cruz Referrals: Raúl Guy MD [Primary Care Provider] - Heriberto Helm DO [Staff Physician] - 1-3 days (needs to be seen urgently and possibly go back to [facility] for repeat colonoscopy if bleeding persists. hgb 15.2) Patient Instructions: Gastrointestinal Bleeding (ED) Activity Restrictions/Additional Instructions: If bleeding seems to be spitting up or if you have chest pain, shortness of breath, or lightheadedness, please return the emergency department expedited colonoscopy. Print Language: Spanish Coding Level of Care Code ED Vp Clinical Research for Nathaly Galvan
[2025-02-27 00:49] LABS: Hematocrit 47.5 % (36-47)
--- NOTE | 2025-02-27 01:24 | PC.NURSE ---
Assumed care from Julia MEYERS.
[2025-02-27 01:35] VITALS: BP 212/78; PULSE 66; O2SAT 96
[2025-02-27 02:26] VITALS: BP 217/97; PULSE 71; O2SAT 94
== END 2025-02-27 02:30 | disposition home or self-care (01) ==
PROVIDERS: Emergency Medicine; Emergency Provider Student in an Organized Health Care Education/Training Program; PCP Family Medicine
DX: K92.2 Gastrointestinal hemorrhage, unspecified (principal); Z87.891 Personal history of nicotine dependence; I10 Essential (primary) hypertension
CPT/HCPCS: 36415; 74174; 80053; 85014; 85018; 85025; 85610; 85730; 86850; 86900; 96365; 96366; 96375; 99285; J1200; J2919; J3490; J7030; J9999

== ENCOUNTER 2025-06-05 14:15 | Outpatient (CLI) | payer MEDICARE, SELFPAY ==
--- NOTE | 2025-06-05 14:29 | PETR_ITS ---
PROCEDURE INFORMATION: Exam: PET/CT Skull Base to Mid-thigh Exam date and time: 06/05/2025 3:43 PM Age: 74 years old Clinical indication: Abnormal findings; Left lower lobe 10 mm pulmonary nodule abutting the undersurface of the major fissure, series 4 image 19; Additional info: History of right PE GI bleeding post colonoscopy in February 2025. LABS AND CLINICAL REPORTS: Glucose: 100 mg/dl Treatment strategy for malignancy (PET staging): Initial Staging (PI) TECHNIQUE: Imaging protocol: Following at least four-hour fasting and following the injection of radiopharmaceutical, low dose CT images were obtained. Then, PET images were obtained. Attenuation corrected images were constructed using the CT scan. Fused images of PET and CT were reviewed. The standardized uptake values (SUV) reported below are maximum values within a region of interest, expressed in gm/ml. Exam includes orbital meatal line to mid-thigh. SUV normalization method: BodyWeight Radiopharmaceutical: 11.68 mCi F-18 FDG (Fluorodeoxyglucose), IV. Time of imaging post radiopharmaceutical administration: 50 minutes Injection site: right ac COMPARISON: CT angio abdomen pelvis [id number] 02/26/2025 11:48 PM FINDINGS: Brain: On the nondedicated limited brain images there is no abnormal distribution of the radiotracer in the taylor and white matter. Pharynx: Normal distribution of the radiotracer in nasopharyngeal, and oropharyngeal structures. Larynx: Normal distribution of the radiotracer in laryngeal structures. Lungs, pleura and trachea: No abnormal uptake. 0.7 cm subpleural nodule in the left lower lobe on axial image 106 is not FDG avid (1.1 SUV). 0.4 cm perifissural nodule in the right middle lobe along the horizontal fissure on axial image 93 is compatible with benign finding (intrapulmonary lymph node). No pleural effusion. Heart: Normal physiologic uptake. There is no cardiomegaly. No coronary artery calcification is visualized. There is no pericardial effusion. Mediastinal space: No abnormal uptake. Liver: Normal size without abnormal radiotracer uptake. Gallbladder and biliary ducts: No abnormal uptake. Status post cholecystectomy. Pancreas: Normal distribution of radiotracer. Spleen: Normal size without abnormal radiotracer uptake. Adrenal glands: No abnormal uptake. No nodules. Kidneys and ureters: Normal physiologic uptake. No hydronephrosis. Stomach and bowel: No abnormal uptake. Small linear metallic foreign bodies in the rectum new since 02/26/2025 probably represent surgical clips for correlation with patient's procedure history. Intraperitoneal and retroperitoneal spaces: No abnormal uptake. No ascites. Bladder: Normal physiologic uptake. Reproductive: No abnormal uptake. The uterus is absent post surgically. Vasculature: No abnormal uptake. No aortic aneurysm. Lymph nodes: No abnormal uptake. No lymphadenopathy in the head, neck, chest, abdomen, pelvis, and extremities. Skeleton: No abnormal uptake in the visualized axial and appendicular skeleton. Soft tissues: No abnormal uptake in the visualized head, neck, chest, abdomen, pelvis, and extremities. METRICS: Mediastinal blood pool maximal uptake is 2.3 SUV. Liver maximal uptake is 3.3 SUV. PET/PET skull to thigh INIT [id number] IMPRESSION: No abnormal radiotracer uptake. 0.7 cm left lower lobe lung nodule is not FDG avid (1.1 SUV).
== END 2025-06-05 14:16 | disposition home or self-care (01) ==
LOC: RAD 14:15
PROVIDERS: PCP Family Medicine; Visit Provider Family Medicine
DX: R91.1 Solitary pulmonary nodule (principal)
CPT/HCPCS: 78815; A9552

== ENCOUNTER 2025-07-07 07:22 | Outpatient (RCR) | payer MEDICARE, SELFPAY | END 2025-07-12 23:59 | disposition home or self-care (01) | LOC: SPT 07:22 | PROVIDERS: PCP Family Medicine; Visit Provider Family Medicine | DX: M62.838 Other muscle spasm (principal) | CPT/HCPCS: 97161 ==